=== PATIENT | male | born 1965 | race Caucasian/White ===

== ENCOUNTER 2018-04-06 05:40 | Outpatient (CLI) | payer OTHER ==
[~2018-04-06] VITALS: Ht 188 cm; Wt 133.8 kg
[~2018-04-06 05:40] MED LIST: LISI-552; OXYC-471
== END 2018-04-06 14:47 ==
LOC: PREOP 05:40
PROVIDERS: ATTEND Specialist
DX: Z01.818 Encounter for other preprocedural examination (principal)

== ENCOUNTER 2018-04-08 07:50 | Day surgery (SDC) | payer OTHER ==
[~2018-04-08] VITALS: Ht 188 cm; Wt 133.8 kg
[2018-04-08 08:00] VITALS: BP 131/83
[2018-04-08] MEDS ORDERED: LIDOCAINE PF 1% 2 ML AMP IR PRN (08:00)
[2018-04-08] MEDS ORDERED: POVIDONE (BETADINE) OPHTH SOLN 5% 30 ML OP ONE (08:00)
[2018-04-08] MEDS ORDERED: MOXIFLOXACIN OPHTH SOLN 5 MG/ML 0.3 ML SYRINGE OP ONE (08:00)
[2018-04-08] MEDS ORDERED: TIMOLOL MALEATE 0.5% 5 ML (TIMOPTIC) BTL OU PRN (08:00)
[2018-04-08] MEDS: TETRACAINE 0.5% OPHTH SOLN 4 ML BTL (SINGLE DOSE ONLY) OU PRN ×4 (08:04→08:27)
[2018-04-08] MEDS: CYCLOPENTOLATE 1% (CYCLOGYL) 2 ML DROPS OP SCH ×3 (08:12→08:27)
[2018-04-08] MEDS: PHENYLEPHRINE 10% OPHTH (NEO-SYN) 5 ML BTL OU SCH ×3 (08:13→08:27)
[2018-04-08] MEDS ORDERED: MIDAZOLAM 2 MG/2 ML (VERSED) VIAL ONE (08:33)
--- NOTE | 2018-04-08 08:40 | Ophthalmologist Pre-Op Note ---
Pre-Operative Progress Note H&P Reviewed The H&P was reviewed, patient examined and no changes noted. Date H&P Reviewed: Apr 08, 2018 Time H&P Reviewed: 08:39 Pre-Op Dx Cataract, Right Eye RADHA VICENTE MD Apr 08, 2018 08:40
--- NOTE | 2018-04-08 09:03 | Ophthalmology Operative Report ---
Cataract removal/placement IOL PREOPERATIVE DIAGNOSIS: Cataract Right Eye POSTOPERATIVE DIAGNOSIS: Cataract Right Eye PROCEDURE: Cataract removal and placement of posterior chamber implant, right eye SURGEON: Mello Vicente ANESTHESIA: Topical with sedation COMPLICATIONS: None ESTIMATED BLOOD LOSS: Minimal DESCRIPTION OF PROCEDURE: After proper informed consent was obtained, the patient, a 52 male, was taken to the Operating Room and the right eye was anesthetized with tetracaine. The right eye was then prepped and draped in the usual manner. A wire lid speculum was placed. A paracentesis was made at the left hand position. Preservative free lidocaine was injected into the anterior chamber followed by viscoelastic. A clear corneal incision was made in the temporal position. A capsulorrhexis was preformed and the central nuclear and cortical material were removed. The posterior capsule was polished and Yasir [id number] 23.5 IOL was placed into the capsular bag. The residual viscoelastic was aspirated and balanced saline solution was injected into the anterior chamber. Moxifloxacin was injected into the anterior chamber. The wound was checked and found to be water tight. The patient tolerated the procedure well without complications. MELLO VICENTE MD Apr 08, 2018 09:03
[2018-04-08 09:13] VITALS: BP 141/101
[2018-04-08] MEDS ORDERED: acetaZOLAMIDE ER 500 MG CAP (DIAMOX SEQUELS) PO ONE (09:30)
--- NOTE | 2018-04-08 12:13 | Anesthesia-General Post-Op ---
MAC Patient Condition Mental Status/LOC: Same as Preop Cardiovascular: Satisfactory Nausea/Vomiting: Absent Respiratory: Satisfactory Pain: Controlled Complications: Absent Post Op Complications Complications None Follow Up Care/Instructions Patient Instructions None needed. Anesthesiology Discharge Order Discharge Order Patient is doing well, no complaints, stable vital signs, no apparent adverse anesthesia problems. No complications reported per nursing. ANTONIA NEWTON CRNA Apr 08, 2018 12:13
== END 2018-04-08 09:14 | disposition home or self-care (01) ==
LOC: SDC 07:50
PROVIDERS: ATTEND Specialist
DX: H25.11 Age-related nuclear cataract, right eye (principal); I10 Essential (primary) hypertension; Z79.899 Other long term (current) drug therapy

== ENCOUNTER → 2022-08-24 | Outpatient (CLI) | payer BC ==
[~2022-08-24] MED LIST changes: -LISI-552; +LISI20TA26; -OXYC-471; +OXYC1TAB11
--- NOTE | 2022-08-24 13:33 | Diagnostic Imaging Report ---
INDICATION: CHRONIC KIDNEY DISEASE STAGE 3B TECHNIQUE: Multiple real-time grayscale sonographic images were obtained of the kidneys. CORRELATION: None FINDINGS: RIGHT KIDNEY: 11.9 x 5.3 x 5.9 cm. LEFT KIDNEY: 13.3 x 5.3 x 5.7 cm. There is an anechoic area of the left renal didier may reflective of a parapelvic cyst versus a less likely hydronephrosis. This measures approximately 3.8 x 2.4 x 2.4 cm. Renal parenchyma otherwise unremarkable involving both kidneys. URINARY BLADDER: The partially distended bladder has an unremarkable appearance. Bilateral ureteral jets are present. IMPRESSION: 1. Probable left parapelvic cyst. Otherwise unremarkable appearance of both kidneys. Dictated by: Dictated on workstation # [id number]
== END ==
LOC: RAD 08:30
PROVIDERS: ATTEND Internal Medicine Nephrology
DX: N18.32 Chronic kidney disease, stage 3b (principal)
CPT/HCPCS: 76770